=== PATIENT | male | born 1970 | race Caucasian/White ===

== ENCOUNTER 2019-04-13 08:17 | Day surgery (SDC) | payer OTHER ==
[~2019-04-13] VITALS: Ht 175.3 cm; Wt 79.8 kg
[~2019-04-13 08:17] MED LIST: ASPI-524; SOTA80TA
[2019-04-13] MEDS ORDERED: fentaNYL CITRATE/PF 100 MCG/2 ML AMP IVP PRN ×2 (08:30)
[2019-04-13] MEDS ORDERED: ONDANSETRON HCL 4 MG/2 ML VIAL IVP PRN (08:30)
[2019-04-13] MEDS ORDERED: fentaNYL CITRATE/PF 100 MCG/2 ML AMP IVP ONE (10:05)
[2019-04-13] MEDS ORDERED: EPINEPHrine 1 MG/ML AMP IV ONE (10:05)
[2019-04-13] MEDS ORDERED: ROCURONIUM BROMIDE 10 MG/ML (ZEMURON) IV ONE (10:05)
[2019-04-13] MEDS ORDERED: LR 1,000 ML IV.SOLN IV ONE (10:05)
[2019-04-13] MEDS ORDERED: GLYCOPYRROLATE 0.2 MG/ML VIAL IJ ONE (10:05)
[2019-04-13] MEDS ORDERED: NS 1000 ML IV.SOLN IV ONE (10:05)
[2019-04-13] MEDS ORDERED: SEVOFLURANE 15 MIN GAS INH ONE (10:05)
[2019-04-13] MEDS ORDERED: NS 500 ML IV.SOLN IV ONE (10:05)
[2019-04-13] MEDS ORDERED: WATER FOR IRRIGATION,STERILE 1,000 ML IRRIG.SOLN IR ONE (10:05)
[2019-04-13] MEDS ORDERED: NEOSTIGMINE METHYLSULFATE 1 MG/ML, 10 ML VIAL IVP ONE (10:05)
[2019-04-13] MEDS ORDERED: DEXAMETHASONE SOD PHOSPHATE 4 MG/ML VIAL IVP ONE (10:05)
[2019-04-13] MEDS ORDERED: BACITRACIN ZINC 15 GM TOPICAL OINTMENT TP ONE (10:05)
[2019-04-13] MEDS ORDERED: MIDAZOLAM HCL 5 MG/5 ML VIAL IVP ONE (10:05)
[2019-04-13] MEDS ORDERED: PROPOFOL 200MG/ 20ML VIAL (DIPRIVAN) IV ONE (10:05)
[2019-04-13] MEDS ORDERED: fentaNYL CITRATE/PF 100 MCG/2 ML AMP ONE (13:40)
[2019-04-13] MEDS ORDERED: HYDROcodone/ACETAMIN 5-325 MG TAB (NORCO/ VICODIN) PO ONE (14:30)
[2019-04-13] MEDS ORDERED: HYDROcodone/ACETAMIN 5-325 MG TAB (NORCO/ VICODIN) ONE (14:41)
[2019-04-13 15:04] VITALS: BP_SYST 122
== END 2019-04-13 15:45 | disposition home or self-care (01) ==
LOC: SDS 08:17 → SMU 08:18 → SDS 15:45
PROVIDERS: ATTEND Otolaryngology
DX: J32.9 Chronic sinusitis, unspecified (principal); J33.9 Nasal polyp, unspecified; J34.89 Other specified disorders of nose and nasal sinuses; J34.2 Deviated nasal septum; J32.2 Chronic ethmoidal sinusitis; D38.5 Neoplasm of uncertain behavior of other respiratory organs; J30.1 Allergic rhinitis due to pollen; I48.91 Unspecified atrial fibrillation; Z80.9 Family history of malignant neoplasm, unspecified; Z79.82 Long term (current) use of aspirin
CPT/HCPCS: 30140; 30520; 31254; 31256; 31288; 31296; 88305; 88311; C1726; J0171; J1100; J2250; J2704; J2710; J3010; J3490; J7030; J7040; J7120